=== PATIENT | female | born 1945 | race Caucasian/White ===

== ENCOUNTER 2017-09-28 16:40 | Emergency (ER) | payer MEDICARE ==
[~2017-09-28] VITALS: Ht 165.1 cm; Wt 60.0 kg
[2017-09-28 16:45] VITALS: BP 152/97; PULSE 76; RESP 14; TEMP 97.6; O2SAT 100
[2017-09-28 17:44] LABS: BILIRUBIN, URINE NEG (NEG); BLOOD, URINE NEG (NEG); GLUCOSE,URINE NEG (NEG); KETONE, URINE NEG (NEG); NITRITE,URINE NEG (NEG); PH, URINE 7.5 (5.0-8.5); URINE COLOR LIGHT-YELLOW (YELLW/STRAW); URINE LEUKOCYTE ESTERASE NEG (NEG)
[2017-09-28 17:55] LABS: AST (GOT) 30 U/L (15-37); BICARBONATE 28.7 MEQ/L (21.0-32.0); BLOOD UREA NITROGEN 6 MG/DL (7-18); CALCIUM 8.7 MG/DL (8.5-10.1); CHLORIDE 100 MEQ/L (98-107); CREATININE 0.71 MG/DL (0.50-1.00); GLOMERULAR FILTRATION RATE 82 ML/MIN (>89); GLUCOSE,RANDOM 67 MG/DL (74-106); SODIUM (NA) 135 MEQ/L (136-145)
[2017-09-28 17:56] LABS: ALT (GPT) 27 U/L (10-53)
[2017-09-28 17:58] LABS: ALKALINE PHOSPHATASE 80 U/L (45-117); TOTAL BILIRUBIN ADULT 0.5 MG/DL (0.2-1.0)
[2017-09-28] MEDS ORDERED: MOBI15TA PO (18:18)
[2017-09-28] MEDS ORDERED: TRAM50 PO (18:18)
--- NOTE | 2017-09-28 18:18 | PD ---
HPI Chief Complaint: Medical Clearance Time Seen by Provider: 17:55 Travel History International Travel<30 days: No Contact w/Intl Traveler<30days: No History of Present Illness HPI 71-year-old female complains right shoulder pain and diarrhea. Patient states that she has history of right shoulder injury status post right shoulder rotator cuff surgery 5 months ago. Patient has been seen by orthopedist for that. Patient state that she had increase in right shoulder pain after the surgery. Patient had an MRI done about 4 weeks ago and it was normal. Patient state that she had intermittent right shoulder pain worse for the past 2 weeks. Patient denies any recent injury. Patient denies any fever chills. Patient states her pain is sharp pain localized to right shoulder. Patient denies any pain radiation. Patient has been taking Advil and Aleve without much relief of the right shoulder pain. Patient also has intermittent diarrhea for the past 5 months. Patient was seen by personal physician and advised to have a stool study. Patient has not had a sample of stool analyzed so far. Patient state that she has mild intermittent abdominal cramping with the diarrhea. Patient denies any dysuria or frequency. Patient denies any vaginal discharge or bleeding. Patient denies any blood in the stool. Patient states that she has mucus in the stool. Patient states that the diarrhea started this morning. Patient states that she had colonoscopy done a year ago and it was normal. PFSH Past Medical History Cardiovascular Problems: Yes (AFIB) ?: Not Past Surgical History Hysterectomy: Yes Social History Tobacco Use: No Allergies-Medications Reported Meds & Prescriptions Reported Meds & Active Scripts Active Ultram (Tramadol HCl) 50 Mg Tab 50 Mg PO Q6H PRN Mobic (Meloxicam) 15 Mg Tab 15 Mg PO DAILY Review of Systems General / Constitutional: No: Fever Eyes: No: Visual changes HENT: No: Headaches Cardiovascular: No: Chest Pain or Discomfort Respiratory: No: Shortness of Breath Gastrointestinal: Positive: Diarrhea, Abdominal Pain Genitourinary: No: Dysuria Musculoskeletal: Positive: Pain Skin: No Rash Neurologic: No: Weakness Psychiatric: No: Depression Endocrine: No: Polydipsia Hematologic/Lymphatic: No: Easy Bruising Physical Exam Narrative GENERAL: Well-nourished, well-developed patient. SKIN: Focused skin assessment warm/dry. HEAD: Normocephalic. EYES: No scleral icterus. No injection or drainage. NECK: Supple, trachea midline. No JVD or lymphadenopathy. CARDIOVASCULAR: Regular rate and rhythm without murmurs, gallops, or rubs. RESPIRATORY: Breath sounds equal bilaterally. No accessory muscle use. GASTROINTESTINAL: Abdomen soft, non-tender, nondistended. MUSCULOSKELETAL: No cyanosis, or edema. Patient has mild tenderness on palpation of right shoulder. Full range of motion the right shoulder. No redness swelling no deformity noted. BACK: Nontender without obvious deformity. No CVA tenderness. Data Data Last Documented VS Vital Signs Date Time Temp Pulse Resp B/P (MAP) Pulse Ox O2 Delivery O2 Flow Rate FiO2 09/28/17 18:32 09/28/17 16:45 97.6 76 14 100 Room Air Orders Orders Complete Blood Count With Diff (09/28/17 16:53) Comprehensive Metabolic Panel (09/28/17 16:53) Urinalysis - C+S If Indicated (09/28/17 16:53) Iv Access Insert/Monitor (09/28/17 16:53) Oxygen Administration (09/28/17 16:53) Oximetry (09/28/17 16:53) Lipase (09/28/17 16:53) Ed Discharge Order (09/28/17 18:18) Labs Laboratory Tests Test 09/28/17 17:02 White Blood Count 5.9 TH/MM3 Red Blood Count 4.70 MIL/MM3 Hemoglobin 14.1 GM/DL Hematocrit 41.7 % Mean Corpuscular Volume 88.7 FL Mean Corpuscular Hemoglobin 30.0 PG Mean Corpuscular Hemoglobin Concent 33.8 % Red Cell Distribution Width 12.8 % Platelet Count 222 TH/MM3 Mean Platelet Volume 8.8 FL Neutrophils (%) (Auto) 58.3 % Lymphocytes (%) (Auto) 23.4 % Monocytes (%) (Auto) 13.0 % Eosinophils (%) (Auto) 4.9 % Basophils (%) (Auto) 0.4 % Neutrophils # (Auto) 3.4 TH/MM3 Lymphocytes # (Auto) 1.4 TH/MM3 Monocytes # (Auto) 0.8 TH/MM3 Eosinophils # (Auto) 0.3 TH/MM3 Basophils # (Auto) 0.0 TH/MM3 CBC Comment DIFF FINAL Differential Comment Urine Color LIGHT-YELLOW Urine Turbidity CLEAR Urine pH 7.5 Urine Specific [place] 1.002 Urine Protein NEG mg/dL Urine Glucose (UA) NEG mg/dL Urine Ketones NEG mg/dL Urine Occult Blood NEG Urine Nitrite NEG Urine Bilirubin NEG Urine Urobilinogen LESS THAN 2.0 MG/DL Urine Leukocyte Esterase NEG Urine RBC LESS THAN 1 /hpf Urine WBC LESS THAN 1 /hpf Microscopic Urinalysis Comment CULT NOT INDICATED Blood Urea Nitrogen 6 MG/DL Creatinine 0.71 MG/DL Random Glucose 67 MG/DL Total Protein 7.0 GM/DL Albumin 4.0 GM/DL Calcium Level 8.7 MG/DL Alkaline Phosphatase 80 U/L Aspartate Amino Transf (AST/SGOT) 30 U/L Alanine Aminotransferase (ALT/SGPT) 27 U/L Total Bilirubin 0.5 MG/DL Sodium Level 135 MEQ/L Potassium Level 3.4 MEQ/L Chloride Level 100 MEQ/L Carbon Dioxide Level 28.7 MEQ/L Anion Gap 6 MEQ/L Estimat Glomerular Filtration Rate 82 ML/MIN Lipase 149 U/L MDM Medical Decision Making Medical Screen Exam Complete: Yes Emergency Medical Condition: Yes Differential Diagnosis Differential diagnosis including arthralgia, tendinitis, bursitis, fracture, dislocation. Diarrhea differential diagnosis including irritable bowel, gastroenteritis, C. difficile colitis. Narrative Course 71-year-old female with right shoulder pain and intermittent diarrhea. The problem has been going on for a period of time. Nothing acute at this point. Patient's vital signs stable. Exam benign. Advised patient to see personal physician for follow-up. Diagnosis Primary Impression: Arthralgia of right shoulder region Additional Impression: Irritable bowel Qualified Codes: K58.0 - Irritable bowel syndrome with diarrhea Patient Instructions: General Instructions Additional Instructions: Take medication as directed. Follow-up with orthopedist and personal physician. Return if worse. Med/Other Pt SpecificInfo: Prescription(s) given Scripts Tramadol (Ultram) 50 Mg Tab 50 MG PO Q6H Y for PAIN, #20 TAB 0 Refills Prov: Peter Marks MD 09/28/17 Meloxicam (Mobic) 15 Mg Tab 15 MG PO DAILY for Pain, #20 TAB 0 Refills Prov: Peter Marks MD 09/28/17 Disposition: 01 DISCHARGE HOME Condition: Stable Peter Marks MD Sep 28, 2017 18:18
[2017-09-28 18:25] LABS: AUTOMATED NEUTROPHIL # 3.4 TH/MM3 (1.8-7.7); BASOPHIL % 0.4 % (0.0-2.0); EOSINOPHIL # 0.3 TH/MM3 (0-0.4); EOSINOPHIL % 4.9 % (0.0-4.0); HEMATOCRIT 41.7 % (35.0-46.0); HEMOGLOBIN 14.1 GM/DL (11.6-15.3); LYMPH % 23.4 % (9.0-44.0); LYMPHOCYTE # 1.4 TH/MM3 (1.0-4.8); MEAN CELL VOLUME 88.7 FL (80.0-100.0); MEAN CORPUSCULAR HGB CONC 33.8 % (32.0-36.0); MEAN PLATELET VOLUME 8.8 FL (7.0-11.0); MONOCYTE # 0.8 TH/MM3 (0-0.9); NEUT % 58.3 % (16.0-70.0); PLATELET COUNT 222 TH/MM3 (150-450); RED CELL DISTRIBUTION WIDTH 12.8 % (11.6-17.2); WHITE BLOOD COUNT 5.9 TH/MM3 (4.0-11.0)
== END 2017-09-28 18:32 | disposition home or self-care (01) ==
LOC: NEPD 16:40
DX: M25.511 Pain in right shoulder (principal); K58.0 Irritable bowel syndrome with diarrhea; I48.91 Unspecified atrial fibrillation
CPT/HCPCS: 80053; 81001; 83690; 85025; 99283